=== PATIENT | female | born 1965 | race Caucasian/White ===

== ENCOUNTER → 2024-02-13 07:18 | Outpatient (REF) | payer OTHER, SELFPAY | LOC: HWRCS 07:18 | PROVIDERS: ATTENDING PHYSICIAN Nurse Practitioner; FAMILY PHYSICIAN Family Medicine | DX: I25.42 Coronary artery dissection (principal); I25.5 Ischemic cardiomyopathy; I49.01 Ventricular fibrillation | CPT/HCPCS: 93306 ==

== ENCOUNTER → 2024-04-09 07:25 | Outpatient (REF) | payer OTHER, SELFPAY | LOC: HWWDC 07:25 | PROVIDERS: ATTENDING PHYSICIAN Family Medicine | DX: Z12.31 Encounter for screening mammogram for malignant neoplasm of breast (principal) | CPT/HCPCS: 77063; 77067 ==

== ENCOUNTER → 2024-10-04 11:36 | Outpatient (REF) | payer OTHER, SELFPAY | LOC: HWRAD 11:36 | PROVIDERS: ATTENDING PHYSICIAN Family Medicine; REFERRING PHYSICIAN Specialist | DX: M25.562 Pain in left knee (principal); M25.561 Pain in right knee | CPT/HCPCS: 73564 ==

== ENCOUNTER → 2024-11-22 07:10 | Outpatient (REF) | payer OTHER, SELFPAY | LOC: RAD 07:10 | PROVIDERS: ATTENDING PHYSICIAN Surgery Vascular Surgery; FAMILY PHYSICIAN Family Medicine | DX: E71.312 Short chain acyl CoA dehydrogenase deficiency (principal) | CPT/HCPCS: 70496; 70498; Q9967 ==

== ENCOUNTER → 2025-06-17 07:31 | Outpatient (REF) | payer OTHER, SELFPAY | LOC: HWWDC 07:31 | PROVIDERS: ATTENDING PHYSICIAN Nurse Practitioner Women's Health; FAMILY PHYSICIAN Family Medicine | DX: Z12.31 Encounter for screening mammogram for malignant neoplasm of breast (principal) | CPT/HCPCS: 77063; 77067 ==